=== PATIENT | male | born 1985 | race African-American/Black ===

== ENCOUNTER 2018-05-19 01:01 | Emergency (ER) | payer SELFPAY ==
[2018-05-19] MEDS ORDERED: Adacel (T-DAP) 0.5 ML VIAL ONE (01:23)
== END 2018-05-19 01:52 | disposition home or self-care (01) ==
LOC: ERS 01:01
DX: S01.81XA Laceration without foreign body of other part of head, initial encounter (principal); F17.210 Nicotine dependence, cigarettes, uncomplicated; Y04.2XXA Assault by strike against or bumped into by another person, initial encounter
CPT/HCPCS: 12011; 90471; 90715